=== PATIENT | female | born 1955 | race Caucasian/White ===

== ENCOUNTER → 2023-02-07 14:48 | Outpatient (BNVA) | payer MEDICARE, BC, SELFPAY | PROVIDERS: PCP Nurse Practitioner Primary Care; Visit Provider Urology | DX: N20.0 Calculus of kidney (principal); N95.2 Postmenopausal atrophic vaginitis; R31.9 Hematuria, unspecified; Z87.440 Personal history of urinary (tract) infections | CPT/HCPCS: 51798; 99202 ==

== ENCOUNTER → 2023-03-29 11:19 | Outpatient (BNVA) | payer MEDICARE, SELFPAY | PROVIDERS: PCP Nurse Practitioner Primary Care; Visit Provider Urology | DX: R31.9 Hematuria, unspecified (principal); N95.2 Postmenopausal atrophic vaginitis; N20.0 Calculus of kidney; Z80.52 Family history of malignant neoplasm of bladder; Z87.440 Personal history of urinary (tract) infections | CPT/HCPCS: 52000; 99212 ==

== ENCOUNTER 2023-05-28 11:35 | Outpatient (AMB) | payer MEDICARE, SELFPAY ==
--- NOTE | 2023-05-28 11:35 | A.OFFVIS_ITS ---
Intake Intake Visit Reasons: Recurrent UTI's/Stones- follow up Intake Note: * This is a telephone visit to follow-up on Recurrent UTI's & Stones. * Meds- None * Allergies to Antibiotic- Cipro, Clindamycin, Levofloxacin & Sulfa * Blood Thinner- None Traffic Control Flagger Required: No Accompanied by: Self / Same As Patient Allergies cephalexin [From Keflex] Allergy (Mild, Verified 05/28/23 11:35) Unknown ciprofloxacin [From Cipro] Allergy (Mild, Verified 05/28/23 11:35) Unknown clindamycin Allergy (Mild, Verified 05/28/23 11:35) C-DIFF codeine Allergy (Mild, Verified 05/28/23 11:35) Unknown levofloxacin [From Levaquin] Allergy (Mild, Verified 05/28/23 11:35) Unknown morphine Allergy (Mild, Verified 05/28/23 11:35) Unknown moxifloxacin [From Avelox] Allergy (Mild, Verified 05/28/23 11:35) Unknown nitrofurantoin [From Macrobid] Allergy (Mild, Verified 05/28/23 11:35) Unknown phenazopyridine [From Pyridium] Allergy (Mild, Verified 05/28/23 11:35) Unknown Sulfa (Sulfonamide Antibiotics) Allergy (Mild, Verified 05/28/23 11:35) RASH Reglan Allergy (Mild, Uncoded 05/28/23 11:35) Unknown HPI HPI Comments History of Present Illness Details Leda is a 67-year-old female who presents for tele-health follow-up for renal calculi. 05/28/23-- FU left kidney stone The patient states that she was doing well. The patient wants to get the procedure done to break the left kidney stone. -------LV--03/29/23--Leda is a 67-year-old female who presents to the office for cystoscopy procedure and discussion of 24-hour urine collection test results. The patient presents to the office for cystoscopy procedure. The patient states she has history of neurocardiogenic syncope and has been recommended to consume high sodium diet. Previously treated by Urologist for frequent UTI's- ---used local estrogen; theray of antibiotics prohylaxis post intercourse dis continued because she is allergic to most of them. ---States stopped taking D-mannose due to GI intolerance. Consumes cranberry juice. States smoked briefly in her 20s. Father and sister had history of bladder cancer. ---------OV--02/07/23--Leda is a 67-year-old female who presents to the clinic as new patient evaluation for microscopic hematuria. Went to ED on 01/09/2023 with complaints of hematuria, cloudy urine, and right side flank pain The patient underwent US abdomen at [facility]. states that she was told she likely passed a renal stone. Denies prior history of renal calculi. Has a history of recurrent UTIs. US abdomen?01/12/2023-- Left kidney: 5 mm left lower pole stone and 4 mm left mid pole stone. Right kidney: WNL. Cystoscopy findings: Bladder was within normal limits. No suspicious bladder lesion found. Discussed 24 hour urine results: Total volume 1.23 L, Calcium 224 mg; Oxalate 24 mg, Sodium 158, Citrate 619 mg. Instructed on importance of fluid intake, Low oxalate diet, low sodium diet. I have discussed treatment with Left ESWL, discussed risks including but not limited to, blood in the urine, bruising to the skin, bleeding, possible need for another procedure if a stone fragment obstructs the ureter while passing, possible need to repeat procedure if stone is not completely fragmented. Plan: Left renal calculi. Pt wants to wait on ESWL at this time. Diet sheet for renal calculi prevention was provided to the patient. Discussed to consume adequate amount of water. Discussed Low oxalate diet---green leafy vegetable, nuts, and tea in moderation as they are rich in oxalate. Fosfomycin one dose was ordered. Tele-health follow-up after 2 months 05/28/23--Plan: Discussed left ESWL. Discussed risks to include but not limited to, blood in the urine, bruising to the skin, kidney hematoma, possible need for another procedure if a stone fragment obstructs the ureter while passing, possible need to repeat procedure if stone is not completely fragmented. Repeat imaging to reevaluate the kidneys. US renal Limited was ordered. 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 GERD (gastroesophageal reflux disease) Hallux valgus Hepatic steatosis Mild persistent asthma in adult without complication Multinodular goiter (nontoxic) Nontraumatic tear of right rotator cuff Osteoporosis of lumbar spine Pre-diabetes Renal calculus, right Right thyroid nodule Vulvar atrophy Review of Systems Const All systems reviewed & are unremarkable except as noted in HPI and below Reports no additional complaints Eyes Reports no additional complaints ENT Reports no additional complaints Card Denies dyspnea Resp Denies cough and Denies dyspnea GI Reports no additional complaints Reports no additional complaints Musc Reports no additional complaints Skin/Breast Denies rash and Denies unusual bruising Neuro Reports no additional complaints Psych Reports no additional complaints Endo Reports no additional complaints Jean-Pierre/Lymph Reports no additional complaints Aller/Immun Reports no additional complaints Assessment & Plan Assessment & Plan (1) Calculus of kidney: Code(s): N20.0 - Calculus of kidney Plan Discussed left ESWL. Repeat imaging to reevaluate the kidneys. US renal Limited was ordered. Orders: Orders US renal BI 05/28/23 N20.0 - Calculus of kidney Patient Instructions: The patient had an opportunity to ask questions regarding treatment plan. All questions were answered. Imaging results were discussed and reviewed in detail. No major barriers to understanding were identified. The patient expressed understanding and agreement with the above treatment plan. The patient is aware they should contact our office by phone for worsening of their current condition or the appearance of new symptoms. Compliance is encouraged with any medications and followup testing that is ordered. It is a privilege to be allowed the opportunity to participate in the urologic care of your patient. If you have any questions or concerns regarding treatment for the above conditions please do not hesitate to contact me. The office telephone contact is [phone]. This note is constructed in part using voice recognition software. While every effort has been made to ensure accuracy creative developer errors may have been included. Yours sincerely, Evens Reeves MD Telehealth Telehealth Location of provider rendering services: practice address Location of patient: address on file Patient Identification confirmed using: Name, : Yes Telehealth method: voice only Patient verbally consented to treatment: Yes Patient verbally consented to billing insurance company: Yes Patient informed of any privacy concerns related to visit: Yes Minutes spent on Phone/Video with Pt.: 15 Coding Level of Care Code Tele New Pt Level 3 (90964) Diagnoses Calculus of kidney N20.0
== END 2023-05-28 12:04 | disposition home or self-care (01) ==
LOC: HO.HUSH 11:35
PROVIDERS: PCP Nurse Practitioner Primary Care; Visit Provider Urology
DX: N20.0 Calculus of kidney (principal)
CPT/HCPCS: 99442

== ENCOUNTER → 2023-05-28 11:35 | Outpatient (BNVA) | payer MEDICARE, SELFPAY | PROVIDERS: PCP Nurse Practitioner Primary Care; Visit Provider Urology ==

== ENCOUNTER 2023-08-01 09:42 | Outpatient (REF) | payer MEDICARE, SELFPAY ==
--- NOTE | ~2023-08-01 | US_ITS ---
EXAMINATION: US RETROPERITONEAL LIMITED (RENAL ONLY) CLINICAL INFORMATION: Calculus of kidney. COMPARISON: None available. TECHNIQUE: Real-time imaging of the kidneys. FINDINGS: RIGHT KIDNEY: 10.2 x 3.7 x 5.0 cm (SAG x AP x TRV). The kidney is normal in size, contour, and echogenicity. Renal cortical thickness is normal. No calculi or focal parenchymal lesions. No hydronephrosis. LEFT KIDNEY: 11.7 x 4.1 x 5.1 cm (SAG x AP x TRV). The kidney is normal in size, contour, and echogenicity. Renal cortical thickness is normal. Two echogenic foci are present at the lower pole of the left kidney measuring 3 and 4 mm in size consistent with nonobstructing calculi. No focal parenchymal lesions or hydronephrosis. US/US renal BI IMPRESSION: Nonobstructing left lower pole renal calculi.
== END 2023-08-01 09:43 | disposition home or self-care (01) ==
LOC: HO.US 09:42
PROVIDERS: PCP Nurse Practitioner Primary Care; Visit Provider Urology
DX: N20.0 Calculus of kidney (principal)
CPT/HCPCS: 76775

== ENCOUNTER 2023-08-22 07:23 | Day surgery (SDC) | payer MEDICARE, SELFPAY ==
[2023-08-22] VITALS (7 sets, daily range): BP systolic 137–161; BP diastolic 74–93; PULSE 74–86; RESP 16–20; TEMP 36.1–36.8; O2SAT 98–99; BMI 23.2
[2023-08-22] MEDS: Lactated Ringers 500 ML 999 ML IV (08:50)
--- NOTE | 2023-08-22 09:30 | HO.ANESPROP2 ---
[facility] Active Problems Active Problems: All Active Problems (Updated 08/22/23 @ 08:18 by Monika Chauhan RN) Atrophic vaginitis (Acute) Family history of bladder cancer (Acute) Left nephrolithiasis (Acute) Calculus of kidney (Acute) History of recurrent UTI (urinary tract infection) (Acute) Vaginal atrophy (Acute) Hematuria (Acute) Past Medical History Medical History (Updated 08/22/23 @ 08:18 by Monika Chauhan RN) Neurocardiogenic syncope Heart murmur Hallux valgus Pre-diabetes Hepatic steatosis Nontraumatic tear of right rotator cuff Dense breast Vulvar atrophy Right thyroid nodule Osteoporosis of lumbar spine Allergic rhinitis GERD (gastroesophageal reflux disease) Multinodular goiter (nontoxic) Mild persistent asthma in adult without complication Arthritis of left sacroiliac joint Renal calculus, right Family History Family history of problems with anesthesia: No Surgical History Surgical History (Updated 08/22/23 @ 08:11 by Monika Chauhan RN) Hx of bilateral cataract extraction Hx of bilateral cataract extraction History of tonsillectomy History of partial thyroidectomy History of arthroplasty of right shoulder History of endoscopic retrograde cholangiopancreatography History of cholecystectomy History of Problems with Anesthesia: No Social History Social History Patient Tobacco Use Status: Former Tobacco user Use of substances other than those prescribed or required for medical reasons: No Are you DNR?: No Advance Directives: No Advance Directives Information Provided: Yes Meds Allergies Allergy/AdvReac Type Severity Reaction Status Date / Time cephalexin [From Keflex] Allergy Mild Rash Verified 08/22/23 08:09 ciprofloxacin [From Cipro] Allergy Mild Rash Verified 08/22/23 08:09 clindamycin Allergy Mild C-DIFF Verified 05/28/23 11:35 codeine Allergy Mild Rash Verified 08/22/23 08:09 levofloxacin [From Levaquin] Allergy Mild Rash Verified 08/22/23 08:09 morphine Allergy Mild Rash Verified 08/22/23 08:09 moxifloxacin [From Avelox] Allergy Mild Rash Verified 08/22/23 08:09 nitrofurantoin Allergy Mild Rash Verified 08/22/23 08:09 [From Macrobid] phenazopyridine Allergy Mild Rash Verified 08/22/23 08:09 [From Pyridium] Sulfa (Sulfonamide Allergy Mild RASH Verified 05/28/23 11:35 Antibiotics) Reglan Allergy Mild Unknown Uncoded 08/22/23 08:09 Home Medications Medication Instructions Recorded Confirmed Last Taken Type Bifidobacterium infantis 4 mg 4 mg PO DAILY 01/16/23 08/22/23 Unknown History capsule (Align) albuterol sulfate 90 mcg/actuation 2 puff inhalation Q4-6H PRN sob 01/16/23 08/22/23 Unknown History aerosol inhaler cholecalciferol (vitamin D3) 75 75 mcg PO DAILY 01/16/23 08/22/23 Unknown History mcg (3,000 unit) tablet dexlansoprazole 60 mg 60 mg PO DAILY 01/16/23 08/22/23 Unknown History capsule,biphase delayed release (Dexilant) diclofenac sodium 1 % topical gel 4 g topical QID 01/16/23 08/22/23 Unknown History (Voltaren Arthritis Pain) estradiol 4 mcg vaginal insert 0.1 mcg vaginal .COMPLEX 01/16/23 08/22/23 Unknown History famotidine 20 mg tablet (Pepcid) 20 mg PO DAILY 01/16/23 08/22/23 Unknown History fluticasone propionate 110 1 puff inhalation BID 01/16/23 08/22/23 Unknown History mcg/actuation HFA aerosol inhaler (Flovent HFA) levalbuterol tartrate 45 1 puff inhalation Q4H PRN wheezing 08/22/23 08/22/23 Unknown History mcg/actuation aerosol inhaler montelukast 10 mg tablet 10 mg PO BEDTIME 08/22/23 08/22/23 Unknown History Exam Exam Date and Time: August 22, 2023 0930 Height,Weight and Vital Signs: Height 5 ft 9 in Weight 71.214 kg Last Vital Signs Temp 98.3 F 08/22/23 08:49 Pulse 86 08/22/23 08:49 Resp 16 08/22/23 08:49 BP 137/74 08/22/23 08:49 Pulse Ox 98 08/22/23 08:49 O2 Del Method Room Air 08/22/23 08:49 Airway Mallampati Class: II TM Dist: >3cm Neck ROM: Full Assessment and Plan Assessment Anesthesia Assessment: Anesthesia Plan Discussed and Chart Reviewed Final Anesthetic Review Family History of Problems with Anesthesia: No History of Problems with Anesthesia: No NPO: Yes ASA Class: II Final Preanesthetic Review: No Changes in Pt Med Stat, Meds/Allgs Chart Reviewed, Consent Obtained/Reviewed and Anes Risks/Benef Reviewed Patient Risk: Low Procedure Risk: Low Anesthetic Plan Anesthetic Plan: GA Disposition: Standard PACU
--- NOTE | 2023-08-22 11:02 | P.OP_ITS ---
Operative Note Operative Note Date of Service: 08/22/23 Narrative: PreOperative Diagnosis:? ? Left Renal calculi Post Operative Diagnosis:?Left Renal calculi Procedure:?Left? ESWL Surgeon:?Dr Evens Reeves Anesthesia:? General Indications for procedure: The patient understands there is a risk of bruising or hematoma to the kidney, infection, and stone migration following the procedure and subsequent intervention may be required.? pre procedure - Imaging KUB was reviewed radioopaque calculi was not easily identified in the left kidney. Radiology plant utilities engineer pending. Ultrasound evaulation was done in the procedure room prior to anesthesia and visualized renal calculi left kidney lower pole 3 and 4 mm stones. Procedure: Informed consent was verified the patient was the patient was placed in a supine position on procedure table.? Anesthesia was performed per protocol. Safety pause time-out was performed. Imaging was displayed in the room and laterality confirmed. ESWL was performed.?The stone was visualized on ultrasound.? Shockwave lithotripsy was performed, the first 300 shocks at 60 hertz.? A pause for 2 minutes.? A total of 2500 shocks to a maximum of power of 18 with a maximum rate of 120 hertz.? Some fragmentation of the stones were appreciated. The patient tolerated the procedure well and was transferred to the recovery area upon completion. Complications: None
== END 2023-08-22 12:35 | disposition home or self-care (01) ==
PROVIDERS: PCP Nurse Practitioner Primary Care; Visit Provider Urology
PROC: (CPT 50590; principal; 2023-08-22 09:30)
DX: N20.1 Calculus of ureter (principal); E11.9 Type 2 diabetes mellitus without complications; K21.9 Gastro-esophageal reflux disease without esophagitis; Z87.442 Personal history of urinary calculi; Z79.899 Other long term (current) drug therapy
CPT/HCPCS: 50590; 74018; J0131; J0290; J1100; J2371; J2405

== ENCOUNTER → 2023-08-22 07:23 | Outpatient (BNV) | payer MEDICARE, SELFPAY | PROVIDERS: PCP Nurse Practitioner Primary Care; Visit Provider Urology | DX: N20.0 Calculus of kidney (principal) | CPT/HCPCS: 50590 ==

== ENCOUNTER 2023-08-27 10:49 | Outpatient (REF) | payer MEDICARE, SELFPAY | END 2023-08-27 10:50 | disposition home or self-care (01) | LOC: HO.LAB 10:49 | PROVIDERS: Visit Provider Urology | DX: Z87.440 Personal history of urinary (tract) infections (principal) | CPT/HCPCS: 81001 ==

== ENCOUNTER 2023-09-17 08:16 | Outpatient (AMB) | payer MEDICARE, SELFPAY ==
--- NOTE | 2023-09-17 08:20 | A.OFFVIS_ITS ---
Intake Intake Visit Reasons: 4 wk follow up Intake Note: Patient presents today for a follow-up. Meds- None Allergies to Antibiotic- Cephalexin, ciprofloxacin, clindamycin, levofloxacin, moxifloxacin, nitrofurantoin, Sulfa. Blood Thinner- None Briar Shop Supervisor Required: No Accompanied by: Self / Same As Patient Allergies cephalexin [From Keflex] Allergy (Mild, Verified 09/17/23 08:24) Rash ciprofloxacin [From Cipro] Allergy (Mild, Verified 09/17/23 08:24) Rash clindamycin Allergy (Mild, Verified 09/17/23 08:24) C-DIFF codeine Allergy (Mild, Verified 09/17/23 08:24) Rash levofloxacin [From Levaquin] Allergy (Mild, Verified 09/17/23 08:24) Rash morphine Allergy (Mild, Verified 09/17/23 08:24) Rash moxifloxacin [From Avelox] Allergy (Mild, Verified 09/17/23 08:24) Rash nitrofurantoin [From Macrobid] Allergy (Mild, Verified 09/17/23 08:24) Rash phenazopyridine [From Pyridium] Allergy (Mild, Verified 09/17/23 08:24) Rash Sulfa (Sulfonamide Antibiotics) Allergy (Mild, Verified 09/17/23 08:24) RASH Reglan Allergy (Mild, Uncoded 08/22/23 08:09) Unknown HPI HPI Comments History of Present Illness Details Leda is a 68-year-old female who presents today to the office for a follow-up. 09/17/2023? She is followed for history of frequent urinary tract infections, and nephrolithiasis. Patient is a status post left ESWL done on 08/22/2023 for left renal stone in the l ower pole. Patient states that post procedure she did see some blood clots in the urine and did not notice any stone fragments. Patient states that she had kidney pain in first couple of days which resolved. She states that over the weekend she did some moving furniture and notes that the kidney pain recurred. I discussed with the patient that the left kidney stone was seen on ultrasound but not seen well KUB imaging so we will monitor with ultrasound imaging on FU. I reviewed the prior 24-hour urine collection test results noted to be urine volume was low at 1.23 L, urine calcium was elevated at 224, and urine sodium was elevated at 158. Discussed again importance of adequate fluid hydration and low sodium diet. The patient states she had a condition neurocardiogenic syncope and needs to consume a certain amount of salt in her diet. X-ray KUB results from 08/22/2023 revealed no evidence of renal calculi. In regards to her symptoms recurrent urinary tract infections, the patient is currently not sexually active which she states is the time when she would get most of her urinary tract infections. She states that nothing ever worked for her including vaginal estrogen, cranberry and D mannose. 09/17/2023: Evaluation today?UA? Leukocy cali: negative; blood: negative. 09/17/2023: Plan: Monitor Kidneys. Orde red Renal US and 24-hour urine collection test in 6 months. Follow-up post. [facility] Medical History Neurocardiogenic syncope Heart murmur Hallux valgus Pre-diabetes Hepatic steatosis Nontraumatic tear of right rotator cuff Dense breast Vulvar atrophy Right thyroid nodule Osteoporosis of lumbar spine Allergic rhinitis GERD (gastroesophageal reflux disease) Multinodular goiter (nontoxic) Mild persistent asthma in adult without complication Arthritis of left sacroiliac joint Renal calculus, right Surgical History Hx of bilateral cataract extraction Hx of bilateral cataract extraction History of tonsillectomy History of partial thyroidectomy History of arthroplasty of right shoulder History of endoscopic retrograde cholangiopancreatography History of cholecystectomy Family History Father No problems noted. Mother No problems noted. Social History Alcohol intake: current Alcohol intake frequency: does not drink Patient Tobacco Use Status: Former Tobacco user Review of Systems Const All systems reviewed & are unremarkable except as noted in HPI and below Reports no additional complaints Eyes Reports no additional complaints ENT Reports no additional complaints Card Denies dyspnea Resp Denies cough and Denies dyspnea GI Reports no additional complaints Reports no additional complaints Musc Reports no additional complaints Skin/Breast Denies rash and Denies unusual bruising Neuro Reports no additional complaints Psych Reports no additional complaints Endo Reports no additional complaints Jean-Pierre/Lymph Reports no additional complaints Aller/Immun Reports no additional complaints Results AMB Urinalysis, Automated UA Leukoctes 0 Jonel/uL Last Edit by SAGAR Delvalle on 09/17/23 09:48 UA Nitrite Negative Last Edit by SAGAR Delvalle on 09/17/23 09:48 UA Urobilinogen 0.2 mg/dL Last Edit by Oj Alvarado Parul on 09/17/23 09:4 8 UA Protein 0 mg/dL Last Edit by SAGAR Delvalle on 09/17/23 09:48 UA pH 6.0 Last Edit by Oj Alvarado Parul on 09/17/23 09:48 UA Blood 0 Gary/uL Last Edit by Oj Alvarado Parul on 09/17/23 09:48 UA Specific [place] 1.015 Last Edit by SAGAR Delvalle on 09/17/23 09: 48 UA Ketone Negative Last Edit by SAGAR Delvalle on 09/17/23 09:48 UA Bilirubin 0 mg/dL Last Edit by Oj Alvarado Parul on 09/17/23 09:48 UA Glucose 0 mg/dL Last Edit by Oj Alvarado Parul on 09/17/23 09:48 Results Reviewed Results Reviewed: Laboratory Last Values Urine pH (Auto) 6.0 09/17/23 09:43 Specific [place] (Auto) 1.015 09/17/23 09:43 Urine Protein (Auto) 0 mg/dL 09/17/23 09:43 Glucose (UA)(Auto) 0 mg/dL 09/17/23 09:43 Urine Ketones (Auto) Negative 09/17/23 09:43 Urine Blood (Auto) 0 Gary/uL 09/17/23 09:43 Urine Nitrite (Auto) Negative 09/17/23 09:43 Urine Bilirubin (Auto) 0 mg/dL 09/17/23 09:43 Urine Urobilinogen (Auto) 0.2 mg/dL 09/17/23 09:43 Leukocyte Esterase (Auto) 0 Jonel/uL 09/17/23 09:43 Date of Service: 08/22/23 EXAMINATION: XR ABDOMEN KUB CLINICAL INDICATION: Pre ESWL left lower pole kidney. COMPARISON: Renal ultrasound 08/01/2023. FINDINGS: The bowel gas pattern is normal with no evidence of ileus or obstruction. The small 3 and 4 mm calculi that were seen on the recent ultrasound exam are not visible on the plain film. No unusual soft tissue calcifications are noted. The bones are unremarkable. Surgical clips are noted in the gallbladder fossa. A few phleboliths are noted in the pelvis. IMPRESSION: No evidence of renal calculi. Assessment & Plan Assessment & Plan (1) Left nephrolithiasis: Code(s): N20.0 - Calculus of kidney (2) Family history of bladder cancer: Code(s): Z80.52 - Family history of malignant neoplasm of bladder (3) Hematuria: Code(s): R31.9 - Hematuria, unspecified (4) History of recurrent UTI (urinary tract infection): Code(s): Z87.440 - Personal history of urinary (tract) infections (5) Atrophic vaginitis: Code(s): N95.2 - Postmenopausal atrophic vaginitis Plan Ordered Renal US and 24-hour urine collection test in 6 months. Follow-up post. Orders: Orders AMB Urinalysis Automated Today Z13.9 - Encounter for screening, unspecified Patient Instructions: The patient had an opportunity to ask questions regarding treatment plan. All questions were answered. Imaging, Laboratory studies and physical exam results were discussed and reviewed in detail. No major barriers to understanding were identified. The patient expressed understanding and agreement with the above treatment plan. The patient is aware they should contact our office by phone for worsening of their current condition or the appearance of new symptoms. Compliance is encouraged with any medications and followup testing that is ordered. It is a privilege to be allowed the opportunity to participate in the urologic care of your patient. If you have any questions or concerns regarding treatment for the above conditions please do not hesitate to contact me. The office telephone contact is [phone]. This note is constructed in part using voice recognition software. While every effort has been made to ensure accuracy director maternal child errors may have been included. Yours sincerely, Evens Reeves MD Coding Level of Care Code Est Pt Level 3 (40481) Diagnoses Left nephrolithiasis N20.0 Family history of bladder cancer Z80.52 Hematuria R31.9 History of recurrent UTI (urinary tract infection) Z87.440 Atrophic vaginitis N95.2
== END 2023-09-17 09:02 | disposition home or self-care (01) ==
PROVIDERS: PCP Nurse Practitioner Primary Care; Visit Provider Urology
DX: N20.0 Calculus of kidney (principal); Z80.52 Family history of malignant neoplasm of bladder; R31.9 Hematuria, unspecified; Z87.440 Personal history of urinary (tract) infections; N95.2 Postmenopausal atrophic vaginitis; Z13.9 Encounter for screening, unspecified
CPT/HCPCS: 99024

== ENCOUNTER → 2023-09-17 08:16 | Outpatient (BNVA) | payer MEDICARE, SELFPAY | PROVIDERS: PCP Nurse Practitioner Primary Care; Visit Provider Urology | DX: N20.0 Calculus of kidney (principal); R31.9 Hematuria, unspecified; N95.2 Postmenopausal atrophic vaginitis; Z80.52 Family history of malignant neoplasm of bladder; Z87.440 Personal history of urinary (tract) infections | CPT/HCPCS: 81003; 99212 ==

== ENCOUNTER 2024-01-24 09:43 | Outpatient (REF) | payer MEDICARE, SELFPAY ==
--- NOTE | ~2024-01-24 | US_ITS ---
EXAMINATION: US RETROPERITONEAL LIMITED (RENAL ONLY) CLINICAL INFORMATION: Calculus of kidney. COMPARISON: X-ray abdomen KUB 08/22/2023. Renal ultrasound 08/01/2023. TECHNIQUE: Real-time imaging of the kidneys. FINDINGS: RIGHT KIDNEY: 10.3 x 3.5 x 5.4 cm (SAG x AP x TRV). The kidney is normal in size, contour, and echogenicity. Renal cortical thickness is normal. No calculi or focal parenchymal lesions. No hydronephrosis. LEFT KIDNEY: 10.9 x 4.4 x 4.3 cm (SAG x AP x TRV). The kidney is normal in size, contour, and echogenicity. Renal cortical thickness is normal. There is a lower pole 7 mm echogenic focus with twinkle artifact consistent with a nonobstructing stone. On the prior ultrasound exam, 3 and 4 mm stones were noted at the lower pole. No focal parenchymal lesions or hydronephrosis. US/US renal BI IMPRESSION: Nonobstructing 7 mm left lower pole renal calculus.
== END 2024-01-24 09:44 | disposition home or self-care (01) ==
LOC: HO.US 09:43
PROVIDERS: PCP Nurse Practitioner Primary Care; Visit Provider Urology
DX: N20.0 Calculus of kidney (principal)
CPT/HCPCS: 76775

== ENCOUNTER 2024-04-21 11:16 | Outpatient (AMB) | payer MEDICARE, SELFPAY ==
--- NOTE | 2024-04-21 11:18 | MHC.OFFVIS ---
Intake Visit Reasons: 7m/US/litholink Allergies cephalexin [From Keflex] Allergy (Mild, Verified 09/17/23 08:24) Rash ciprofloxacin [From Cipro] Allergy (Mild, Verified 09/17/23 08:24) Rash clindamycin Allergy (Mild, Verified 09/17/23 08:24) C-DIFF codeine Allergy (Mild, Verified 09/17/23 08:24) Rash levofloxacin [From Levaquin] Allergy (Mild, Verified 09/17/23 08:24) Rash morphine Allergy (Mild, Verified 09/17/23 08:24) Rash moxifloxacin [From Avelox] Allergy (Mild, Verified 09/17/23 08:24) Rash nitrofurantoin [From Macrobid] Allergy (Mild, Verified 09/17/23 08:24) Rash phenazopyridine [From Pyridium] Allergy (Mild, Verified 09/17/23 08:24) Rash Sulfa (Sulfonamide Antibiotics) Allergy (Mild, Verified 09/17/23 08:24) RASH Reglan Allergy (Mild, Uncoded 08/22/23 08:09) Unknown HPI Comments Details: 04/21/24--Leda is a 68-year-old female who presents today to the office for a follow-up for nephrolithiasis. Previous 24 hour urine collection 02/23/2023, low urine volume slightly elevated urine calcium to 24 mg and slightly elevated urine sodium. She had left ESWL performed on 08/21/2023. She is here in follow-up to discuss renal ultrasound results. I discussed renal ultrasound 01/24/2024, a 7 mm left kidney lower pole stone is visualized. Prior to left ESWL, renal ultrasound 08/01/2023 noted a 3 and 4 mm stone in the left kidney. I question accuracy of reported size of stone in the left kidney on renal US 01/24/24. The patient states she is asymptomatic denies renal colic or gross hematuria. Plan discussed follow-up CT stone protocol in 1 year. Patient to call earlier for urinary symptoms. Again recommended increasing fluid intake up to 2 L and low-sodium diet. Review of chart: 09/17/2023? She is followed for history of frequent urinary tract infections, and nephrolithiasis. Patient is a status post left ESWL done on 08/22/2023 for left renal stone in the lower pole. Patient states that post procedure she did see some blood clots in the urine and did not notice any stone fragments. Patient states that she had kidney pain in first couple of days which resolved. She states that over the weekend she did some moving furniture and notes that the kidney pain recurred. I discussed with the patient that the left kidney stone was seen on ultrasound but not seen well KUB imaging so we will monitor with ultrasound imaging on FU. I reviewed the prior 24-hour urine collection test results noted to be urine volume was low at 1.23 L, urine calcium was elevated at 224, and urine sodium was elevated at 158. Discussed again importance of adequate fluid hydration and low sodium diet. The patient states she had a condition neurocardiogenic syncope and needs to consume a certain amount of salt in her diet. X-ray KUB results from 08/22/2023 revealed no evidence of renal calculi. In regards to her symptoms recurrent urinary tract infections, the patient is currently not sexually active which she states is the time when she would get most of her urinary tract infections. She states that nothing ever worked for her including vaginal estrogen, cranberry and D mannose. Evaluation today?UA? Leukocytes: negative; blood: negative. Monitor Kidneys. Ordered Renal US and 24-hour urine collection test in 6 months. [facility] Medical History Neurocardiogenic syncope Heart murmur Hallux valgus Pre-diabetes Hepatic steatosis Nontraumatic tear of right rotator cuff Dense breast Vulvar atrophy Right thyroid nodule Osteoporosis of lumbar spine Allergic rhinitis GERD (gastroesophageal reflux disease) Multinodular goiter (nontoxic) Mild persistent asthma in adult without complication Arthritis of left sacroiliac joint Renal calculus, right Surgical History Hx of bilateral cataract extraction Hx of bilateral cataract extraction History of tonsillectomy History of partial thyroidectomy History of arthroplasty of right shoulder History of endoscopic retrograde cholangiopancreatography History of cholecystectomy Family History Father No problems noted. Mother No problems noted. Social History Alcohol intake: current Alcohol intake frequency: does not drink Patient Tobacco Use Status: Former Tobacco user Review of Systems Const All systems reviewed & are unremarkable except as noted in HPI and below Reports no additional complaints Eyes Reports no additional complaints ENT Reports no additional complaints Card Reports no additional complaints Resp Reports no additional complaints GI Reports no additional complaints Reports as per HPI Musc Reports no additional complaints Skin/Breast Reports system reviewed and no additional complaints, except as documented Neuro Reports no additional complaints Psych Reports no additional complaints Endo Reports no additional complaints Jean-Pierre/Lymph Reports no additional complaints Aller/Immun Reports no additional complaints Results AMB Urinalysis, Automated UA Leukoctes 0 Jonel/uL Last Edit by SAGAR Delvalle on 04/21/24 11:33 UA Nitrite Negative Last Edit by Oj Alvarado Parul on 04/21/24 11:33 UA Urobilinogen 0.2 mg/dL Last Edit by Oj Alvarado Parul on 04/21/24 11:33 UA Protein 15 mg/dL Last Edit by Oj Alvarado Parul on 04/21/24 11:33 UA pH 6.0 Last Edit by Oj Alvarado [facility] on 04/21/24 11:33 UA Blood 10 Gary/uL Last Edit by SAGAR Delvalle on 04/21/24 11:33 UA Specific Bucklin 1.010 Last Edit by SAGAR Delvalle on 04/21/24 11:33 UA Ketone Negative Last Edit by Oj Alvarado Parul on 04/21/24 11:33 UA Bilirubin 0 mg/dL Last Edit by Oj Alvarado Parul on 04/21/24 11:33 UA Glucose 0 mg/dL Last Edit by Oj Alvarado [facility] on 04/21/24 11:33 Results Reviewed Results Reviewed: Date of Service: 01/24/24 EXAMINATION: US RETROPERITONEAL LIMITED (RENAL ONLY) CLINICAL INFORMATION: Calculus of kidney. COMPARISON: X-ray abdomen KUB 08/22/2023. Renal ultrasound 08/01/2023. TECHNIQUE: Real-time imaging of the kidneys. FINDINGS: RIGHT KIDNEY: 10.3 x 3.5 x 5.4 cm (SAG x AP x TRV). The kidney is normal in size, contour, and echogenicity. Renal cortical thickness is normal. No calculi or focal parenchymal lesions. No hydronephrosis. LEFT KIDNEY: 10.9 x 4.4 x 4.3 cm (SAG x AP x TRV). The kidney is normal in size, contour, and echogenicity. Renal cortical thickness is normal. There is a lower pole 7 mm echogenic focus with twinkle artifact consistent with a nonobstructing stone. On the prior ultrasound exam, 3 and 4 mm stones were noted at the lower pole. No focal parenchymal lesions or hydronephrosis. IMPRESSION: Nonobstructing 7 mm left lower pole renal calculus. Date of Service: 08/22/23 EXAMINATION: XR ABDOMEN KUB CLINICAL INDICATION: Pre ESWL left lower pole kidney. COMPARISON: Renal ultrasound 08/01/2023. FINDINGS: The bowel gas pattern is normal with no evidence of ileus or obstruction. The small 3 and 4 mm calculi that were seen on the recent ultrasound exam are not visible on the plain film. No unusual soft tissue calcifications are noted. The bones are unremarkable. Surgical clips are noted in the gallbladder fossa. A few phleboliths are noted in the pelvis. IMPRESSION: No evidence of renal calculi. Date of Service: 08/01/23 EXAMINATION: US RETROPERITONEAL LIMITED (RENAL ONLY) CLINICAL INFORMATION: Calculus of kidney. COMPARISON: None available. TECHNIQUE: Real-time imaging of the kidneys. FINDINGS: RIGHT KIDNEY: 10.2 x 3.7 x 5.0 cm (SAG x AP x TRV). The kidney is normal in size, contour, and echogenicity. Renal cortical thickness is normal. No calculi or focal parenchymal lesions. No hydronephrosis. LEFT KIDNEY: 11.7 x 4.1 x 5.1 cm (SAG x AP x TRV). The kidney is normal in size, contour, and echogenicity. Renal cortical thickness is normal. Two echogenic foci are present at the lower pole of the left kidney measuring 3 and 4 mm in size consistent with nonobstructing calculi. No focal parenchymal lesions or hydronephrosis. IMPRESSION: Nonobstructing left lower pole renal calculi. Assessment & Plan Assessment & Plan (1) Left nephrolithiasis: Code(s): N20.0 - Calculus of kidney Category: Medical (2) Family history of bladder cancer: Code(s): Z80.52 - Family history of malignant neoplasm of bladder Category: Medical (3) Hematuria: Code(s): R31.9 - Hematuria, unspecified Category: Medical (4) History of recurrent UTI (urinary tract infection): Code(s): Z87.440 - Personal history of urinary (tract) infections Category: Medical (5) Atrophic vaginitis: Code(s): N95.2 - Postmenopausal atrophic vaginitis Category: Medical Plan Plan discussed follow-up CT stone protocol in 1 year. Patient to call earlier for urinary symptoms. Again recommended increasing fluid intake up to 2 L and low-sodium diet. Orders: Orders AMB Urinalysis Automated Today Z13.9 - Encounter for screening, unspecified CT abdomen pelvis wo IV con 42 Weeks N20.0 - Calculus of kidney Patient Instructions: The patient had an opportunity to ask questions regarding treatment plan. The patient expressed understanding and agreement with the above treatment plan. The patient is aware they should contact our office by phone for worsening of their current condition or the appearance of new symptoms. Compliance is encouraged with any medications and followup testing that is ordered. It is a privilege to be allowed the opportunity to participate in the urologic care of your patient. If you have any questions or concerns regarding treatment for the above conditions please do not hesitate to contact me. The office telephone contact is [phone]. This note is constructed in part using voice recognition software. While every effort has been made to ensure accuracy aerologist errors may have been included. Yours sincerely, Evens Reeves MD Coding Level of Care Code Est Pt Level 3 (28585) Complex EM visit Add On G2211 Diagnoses Left nephrolithiasis N20.0 Family history of bladder cancer Z80.52 Hematuria R31.9 History of recurrent UTI (urinary tract infection) Z87.440 Atrophic vaginitis N95.2
== END 2024-04-21 11:42 | disposition home or self-care (01) ==
PROVIDERS: PCP Nurse Practitioner Primary Care; Visit Provider Urology
DX: N20.0 Calculus of kidney (principal); Z80.52 Family history of malignant neoplasm of bladder; R31.9 Hematuria, unspecified; Z87.440 Personal history of urinary (tract) infections; N95.2 Postmenopausal atrophic vaginitis; Z13.9 Encounter for screening, unspecified
CPT/HCPCS: 99213; G2211

== ENCOUNTER → 2024-04-21 11:16 | Outpatient (BNVA) | payer MEDICARE, SELFPAY | PROVIDERS: PCP Nurse Practitioner Primary Care; Visit Provider Urology | DX: N20.0 Calculus of kidney (principal); R31.9 Hematuria, unspecified; N95.2 Postmenopausal atrophic vaginitis; Z87.440 Personal history of urinary (tract) infections; Z80.52 Family history of malignant neoplasm of bladder | CPT/HCPCS: 81003; 99212 ==

== ENCOUNTER 2024-12-19 13:46 | Outpatient (REF) | payer MEDICARE, SELFPAY ==
--- NOTE | ~2024-12-19 | CT_ITS ---
CLINICAL HISTORY: N20.0 - Calculus of kidney CT abdomen and pelvis without contrast Comparison: None Findings: The lung bases are clear. Unremarkable solid organs. There are no abnormal findings in the gallbladder fossa. No urolithiasis. No bowel obstruction, pneumoperitoneum, or pneumatosis. Pelvic contents unremarkable. Normal appendix. The bones are intact. IMPRESSION: No acute findings. This document has been electronically signed by: Gray White MD on 12/19/2024 19:12:34
--- OUTSIDE RECORDS SUMMARY | 2024-12-19 13:47 | XMS_ITS | Clinical Summary ---
Author Organization [facility] Address [address] [place] [address] Care Team Providers Care Flight Superintendent Name Role Phone Unavailable Primary Care Provider Unavailabl e Allergies Active Allergy Reactions Criticality Noted Date Comments Moxifloxacin Hcl In Nacl Nausea Only 04/14/2015 Ciprofloxacin 09/14/2015 ?rash Clindamycin High 05/27/2015 Developed C. difficile Codeine 04/14/2015 Unknown reaction Levofloxacin In D5w Rash Low 04/14/2015 Nitrofurantoin Rash Low 06/03/2015 Morphine Nausea Only 09/14/2015 Metoclopramide High 04/14/2015 Tardive dyskinesia Sulfa Antibiotics 04/14/2015 Rash on extremities and head Medications Medication Sig Dispensed Refills Start Date End Date Status Probiotic Product (ALIGN) 4 MG CAPS Take 4 mg by mouth daily. 0 Active MULTIPLE VITAMIN PO Take 1 tablet by mouth daily. 0 Active Albuterol Sulfate (PROAIR RESPICLICK) 108 (90 BASE) MCG/ACT AEPB Inhale 2 inhalations into the lungs 4 (four) times a day as needed. 1 each 6 02/14/2016 Active Additional Information Patient taking differently:2 inhalation. InhalationAs needed, instructed to bring, Reported on 12/27/2016 beclomethasone (QVAR) 80 MCG/ACT inhalerIndications :Mild intermittent asthma without complication Inhale 1 puff into the lungs 2 (two) times a day. 3 Inhaler 3 12/05/2016 Active amitriptyline (ELAVIL) 10 MG tablet Take 1 tablet (10 mg total) by mouth every night at bedtime. 90 tablet 2 03/19/2017 Active dexlansoprazole (DEXILANT) 60 MG capsule Take 1 capsule (60 mg total) by mouth 2 (two) times a day before breakfast and dinner. 180 capsule 1 05/03/2017 Active montelukast (SINGULAIR) 10 MG tablet TAKE 1 TABLET DAILY 90 tablet 1 08/01/2017 Active Active Problems Problem Noted Date Diagnosed Date Fracture of left great toe 07/27/2016 Acquired hallux rigidus 07/27/2016 Foot pain, left 07/27/2016 Capsulitis of left foot 07/27/2016 Acute frontal sinusitis 02/14/2016 SOB (shortness of breath) 12/10/2015 Penicillin allergy 09/14/2015 Personal history of allergy to antibiotic agent 09/14/2015 Personal history of allergy to other specified medicinal agents 09/14/2015 Mild persistent extrinsic asthma without complic ation 09/14/2015 Allergic rhinitis due to pollen 09/14/2015 Allergic rhinitis due to house dust mite 015 Multinodular goiter (nontoxic) 09/13/2015 Right thyroid nodule 09/13/2015 Epigastric pain 07/05/2015 Abdominal pain, epigastric 05/27/2015 Routine general medical exam ination at a health care facility 05/27/2015 Esophageal reflux 05/27/2015 Asthma 04/17/2014 Immunizations Name Administration Dates Next Due Influenza TIV (IM) (inactive) 08/19/2015 Varicella 07/20/2014 Family History Medical History Relation Name Comments Allergic rhinitis Father YANG Asthma Father Diabetes Father Hypothyroidism Mother Diabetes Other multiple patern al relatives Breast cancer Paternal Aunt Breast cancer Sister 3 BRCA 1/2 Neg Hx Cancer Neg Hx Colon cancer Neg Hx Endometrial cancer Neg Hx Ovarian cancer Neg Hx Relation Name Status Comments Brother 1 Alive Brother 2 Alive Father Alive 94 Mother Alive 95 Other Paternal Aunt Sister 1 Alive Sister 2 Alive Sister 3 Social History Tobacco Use Types Packs/Day Years Used Date Smoking Tobacco: Former Smokeless Tobacco: Never Comments:quit 40 years ago, was an occasional smoker Alcohol Use Standard Drinks/Week Comments Yes 0 (1 standard drink = 0.6 oz pur e alcohol) very little per pt Sex and Gender Information Value Date Recorded Sex Assigned at Not on file Gender Identity Not on file Sexual Orientation Not on file Last Filed Vital Signs Vital Sign Reading Time Taken Comments Blood Pressure 108/80 03/19/2017 1:21 PM EDT Pulse 82 03/19/2017 1:21 PM EDT Temperature 37 ??C (98.6 ??F) 03/19/2017 1:21 PM EDT Respiratory Rate 17 12/29/2016 12:00 PM EST Oxygen Saturation 98% 12/29/2016 12:17 PM EST Inhaled Oxygen Concentration - - Weight 66.7 kg (147 lb) 03/19/2017 1:21 PM EDT Height 175.3 cm (5' 9 ) 03/19/2017 1:21 PM EDT Body Mass Index 21.71 03/19/2017 1:21 PM EDT Plan of Treatment Health Maintenance Due Date Last Done Comments Hepatitis C Screening 1955 COVID-19 Vaccine (#1) 03/11/1955 Depression Screening 1966 Preventative Health Evaluation 1972 DTap / Tdap / Td (1 - Tdap) 1973 Colon Cancer Screening (Colonoscopy) 1999 Shingrix-Zoster Vaccine (1 o f 2) 09/14/2014 Breast Cancer Screening (Mammogram) 09/06/2018 09/06/2016, 07/02/2015, 06/29/2014 Fall Risk Assessment 2019 Osteoporosis Screening (DEXA Scan) 2019 Pneumococcal Vaccine (1 of 1 - PCV) 2019 Influenza Vaccine (#1) 2024 08/19/2015 RSV Adult > 60+ Yrs or (1 - 1-dose 75+ series) 2029 Hepatitis B Vaccines Aged Out No long er eligible based on patient's age to complete this topic RSV Ped < 20 months Aged Out No longe r eligible based on patient's age to complete this topic Medical Devices Implanted Type Area Junior Qa Analyst Device Identifier Shelf Expiration Date Model / Serial / Lot Cellulose Surgicel 14x2in Absorbable Hemostatic Agent - [id number] - [id number] Implanted:Qty: 1 on 12/29/2016 by Tommie Oglesby MD at [facility] and Med Hemostatic Agent N/A: Neck [employer] 05/18/20211950 / / [id number] Advance Directives For more information, please contact: [phone] Latest Code Status on File Code Status Date Activated Date Inactivated Comments Full Code 06/04/2015 8:58 AM 06/04/2015 3:54 PM This code status was ascertained in the following way: discussion with patient.
--- OUTSIDE RECORDS SUMMARY | 2024-12-19 13:47 | XMS_ITS | Clinical Summary ---
Author Organization [facility] Address [address] [place] [address] Care Team Providers Care Manager Books Name Role Phone Unavailable Primary Care Provider Unavailabl e Surgical History Surgery Date Site/Laterality Comments CHOLECYSTECTOMY PROCEDURE:CHOLECYSTECTOMY ERCP W/ SPHICTEROTOMY PROCEDURE:ERCP W/ SPHICTEROTOMY SECTION PROCEDURE: SECTION SHOULDER SURGERY Right PROCEDURE:SHOULDER SURGERY;COMMENT:rotator cuff repair EYE SURGERY PROCEDURE:EYE SURGERY;COMMENT:bilateral cataract surgery BREAST BIOPSY Bilateral PROCEDURE:BREAST EXCISIONAL BIOPSY;COMMENT:1978, benign CATARACT EXTRACTION W/ INTRAOCULAR LENS IMPLANT PROCEDURE:CATARACT EXTRACTION W/ INTRAOCULAR LENS IMPLANT COLONOSCOPY PROCEDURE:COLONOSCOPY THYROIDECTOMY, PARTIAL 12/29/2016 Bilateral PROCEDURE:THYROIDECTOMY, PARTIAL;COMMENT:Procedure: RIGHT THYROIDECTOMY; Surgeon: Tommie Oglesby MD; Location: [facility] MAIN OPERATING ROOM; Service: General; Laterality: Bilateral; w/ reimplantation of parathyroid gland UPPER GASTROINTESTINAL ENDOSCOPY 06/04/2015 N/A PROCEDURE:UPPER GASTROINTESTINAL ENDOSCOPY;COMMENT:Procedure: UPPER ENDOSCOPY-EGD; Surgeon: Krunal Carvalho MD; Location: [facility] ENDOSCOPY; Service: Gastroenterology; Laterality: N/A; Medical History Medical History Date Comments Clostridium difficile colitis DX :Clostridium difficile colitis DVT (deep venous thrombosis) ([facility]) 1999 DX:DVT (deep venous thrombosis) ([facility]);COMMENT:left calf Asthma DX:Asthma Anemia DX:Anemia;COMMEN T:mild, not on iron supplements Multiple thyroid nodules DX:Mult iple thyroid nodules;COMMENT:being monitored Stomach ulcer DX:Stomach ulcer Osteoporosis DX:Osteoporosis Multiple thyroid nodules DX:Mult iple thyroid nodules Mitral valve prolapse DX:Mitral valve prolapse DVT of leg (deep venous thro mbosis) ([facility]) DX:DVT of leg (deep venous t hrombosis) ([facility]) GERD (gastroesophageal reflux disease) DX:GERD (gastroesophageal reflux disease) Thyroid condition DX:Thyroid con dition PONV (postoperative nausea and vomiting) DX:PONV (postoperative nausea and vomiting) Osteoarthritis DX:Osteoarthriti s Pneumonia DX:Pneumonia Urinary tract infection DX:Urina ry tract infection Hepatitis DX:Hepatitis;COM MENT:had twice, 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, 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 Syncope DX:Syncope;COMME NT:last episode 2 years Neurocardiogenic syncope DX:Neur ocardiogenic syncope;COMMENT:hx of / last episode 2014 Family History Medical History Relation Name Comments Allergic rhinitis Father YANG Asthma Father Diabetes Father Breast cancer Father's Sister Hypothyroidism Mother Diabetes Other multiple patern al relatives Breast cancer Sister 1 BRCA 1/2 Neg Hx Cancer Neg Hx Colon cancer Neg Hx Endometrial cancer Neg Hx Ovarian cancer Neg Hx Relation Name Status Comments Brother 1 Alive Brother 2 Alive Father Alive 94 Father's Sister Mother Alive 95 Other Sister 1 Sister 2 Alive Sister 3 Alive Social History Tobacco Use Types Packs/Day Years Used Date Smoking Tobacco: Former Smokeless Tobacco: Never Alcohol Use Standard Drinks/Week Comments Yes 0 (1 standard drink = 0.6 oz pur e alcohol) Sex and Gender Information Value Date Recorded Sex Assigned at Not on file Gender Identity Not on file Sexual Orientation Not on file Obstetrics History Plan of Treatment Health Maintenance Due Date Last Done Comments Breast Cancer Screening 1954 DTaP,Tdap,and Td Vaccines (1 - Tdap) 1973 Zoster Vaccines (1 of 2) 09/14/2014 07/20/2014 Pneumococcal Vaccine: 65+ Ye ars (1 of 1 - PCV) 2019 COVID-19 Vaccine ( - 2023-2 5 season) 2024 Influenza Vaccine (#1) 2024 08/19/2015 RSV Immunization Patients 60 + Years Old (1 - 1-dose 75+ series) 2029 Varicella Vaccines Aged Out 07/20/2014 No longer eligible based on patient's age to complete this topic HIB Vaccines Aged Out No longer eligi ble based on patient's age to complete this topic HPV Vaccines Aged Out No longer eligi ble based on patient's age to complete this topic Hepatitis A Vaccines Aged Out No long er eligible based on patient's age to complete this topic Hepatitis B Vaccines Aged Out No long er eligible based on patient's age to complete this topic IPV Vaccines Aged Out No longer eligi ble based on patient's age to complete this topic MMR Vaccines Aged Out No longer eligi ble based on patient's age to complete this topic Meningococcal ACWY Vaccine Aged Out N o longer eligible based on patient's age to complete this topic RSV Immunization Patients Un cristina 20 months Aged Out No longer eligible b ased on patient's age to complete this topic
--- OUTSIDE RECORDS SUMMARY | 2024-12-19 13:47 | XMS_ITS | Clinical Summary ---
Author Organization [facility] Address [address] [place] [address] Care Team Providers Care Acid Tender Name Role Phone Joe Bryan MD Primary Care Provider [phone] Allergies Active Allergy Reactions Criticality Noted Date Comments Ciprofloxacin Hcl 01/22/2012 Clindamycin 01/22/2012 Codeine 04/30/2017 Levaquin 04/30/2017 Metoclopramide 04/30/2017 Nitrofurantoin 04/30/2017 Penicillins 01/22/2012 Sulfa Antibiotics 01/22/2012 Medications Omeprazole (PriLOSEC) [address] capsule 0 01/22/2012 Active montelukast (Singulair) 10 MG tablet 0 01/22/2012 Active Estradiol (Vagifem) 10 MCG Tab 0 01/22/2012 Active Ciclesonide (Alvesco) 160 MCG/ACT inhaler 0 01/22/2012 Act mehul Clotrimazole (LOTRIMIN) 1 % vaginal cream 0 01/22/2012 Activ e Fexofenadine HCl (FLAKO) 180 MG tablet 0 01/22/2012 Active Active Problems Problem Noted Date Diagnosed Date Headache 04/30/2017 Acute allergic rhinitis due to pollen 04/30/2017 Asthma 01/22/2012 Chronic sinusitis 01/22/2012 Eustachian tube dysfunction 01/22/2012 Family History Medical History Relation Name Comments Allergies (med/food/envrnmt) Other Allergies : Family History Asthma Other Asthma : Family History Cancer (?Type) Other Cancer : Fami ly History Diabetes Other Diabetes Mellit us : Family History Thyroid Disorder Other Thyroid Dis order : Family History Relation Name Status Comments Other Social History Tobacco Use Types Packs/Day Years Used Date Smoking Tobacco: Never Assessed Comments:Smoking Status:Ciga rette smoker Comments Unknown Sex and Gender Information Value Date Recorded Sex Assigned at Not on file Legal Sex Female 5:04 PM EDT Gender Identity Not on file Sexual Orientation Not on file Last Filed Vital Signs Vital Sign Reading Time Taken Comments Blood Pressure 124/82 01/22/2012 1:00 PM EST Pulse - - Temperature - - Respiratory Rate - - Oxygen Saturation - - Inhaled Oxygen Concentration - - Weight 68 kg (150 lb) 01/22/2012 1:00 PM EST Height 175.3 cm (5' 9 ) 01/22/2012 1:00 PM EST Body Mass Index 22.15 01/22/2012 1:00 PM EST Plan of Treatment Health Maintenance Due Date Last Done Comments Hepatitis C Screening 1955 DTaP/Tdap/Td (1 - Tdap) 1972 Mammogram/Breast Imaging 1994 Pneumococcal 50+ years (1 of 1 - PCV) 2004 Zoster (Shingrix) (1 of 2) 2004 Bone Density 2019 COVID-19 Vaccine ( - 2023-2 5 season) 2024 Influenza (#1) 2024 RSV (1 - 1-dose 75+ series) 2029 HPV Vaccine Aged Out No longer eligi ble based on patient's age to complete this topic Hep A Aged Out No longer eligi ble based on patient's age to complete this topic Hep B Aged Out No longer eligi ble based on patient's age to complete this topic Hib Aged Out No longer eligi ble based on patient's age to complete this topic Meningococcal ACWY Aged Out No longer eligible based on patient's age to complete this topic Pap Smear Discontinued Zoster (Zostavax) Discontinued Care Teams Acid Tender Relationship Specialty Start Date End Date Joe Bryan MD [address] [place] [address] PCP - General 06/25/23
== END 2024-12-19 13:47 | disposition home or self-care (01) ==
LOC: HO.CT 13:46
PROVIDERS: PCP Nurse Practitioner Primary Care; Visit Provider Urology
DX: N20.0 Calculus of kidney (principal)
CPT/HCPCS: 74176

== ENCOUNTER → 2024-12-19 13:51 | Outpatient (BNV) | payer MEDICARE, SELFPAY | PROVIDERS: PCP Nurse Practitioner Primary Care; Visit Provider Specialist | DX: N20.0 Calculus of kidney (principal) | CPT/HCPCS: 74176 ==

== ENCOUNTER 2025-04-23 09:42 | Outpatient (AMB) | payer MEDICARE, SELFPAY ==
--- NOTE | 2025-04-23 09:48 | A.OFFVIS_ITS ---
Intake Visit Reasons: 1y/CT Intake Note: Patient presents today for a 1 year follow-up/CT * Abdomen/Pelvis CT 12/19 Urology Meds- None Allergies to Antibiotic- Cephalexin, ciprofloxacin, clindamycin, levofloxacin, moxifloxacin, nitrofurantoin, Sulfa. Blood Thinner- None Public Health Representative Required: No Accompanied by: Self / Same As Patient Allergies cephalexin [From Keflex] Allergy (Mild, Verified 04/23/25 09:56) Rash ciprofloxacin [From Cipro] Allergy (Mild, Verified 04/23/25 09:56) Rash clindamycin Allergy (Mild, Verified 04/23/25 09:56) C-DIFF codeine Allergy (Mild, Verified 04/23/25 09:56) Rash levofloxacin [From Levaquin] Allergy (Mild, Verified 04/23/25 09:56) Rash morphine Allergy (Mild, Verified 04/23/25 09:56) Rash moxifloxacin [From Avelox] Allergy (Mild, Verified 04/23/25 09:56) Rash nitrofurantoin [From Macrobid] Allergy (Mild, Verified 04/23/25 09:56) Rash phenazopyridine [From Pyridium] Allergy (Mild, Verified 04/23/25 09:56) Rash Sulfa (Sulfonamide Antibiotics) Allergy (Mild, Verified 04/23/25 09:56) RASH Reglan Allergy (Mild, Uncoded 08/22/23 08:09) Unknown Medication List - Last Reconciled 04/23/25 by Evens Reeves MD albuterol sulfate 90 mcg/actuation 2 puffs inhalation Q4-6H PRN Bifidobacterium infantis (Align (B.infantis)) 4 mg PO DAILY dexlansoprazole (Dexilant) 60 mg PO DAILY diclofenac sodium 1% (Voltaren Arthritis Pain) 4 grams topical QID famotidine (Pepcid) 20 mg PO DAILY montelukast 10 mg PO BEDTIME HPI Comments Details: 04/21/24--Leda is a 68-year-old female who presents today to the office for a follow-up for nephrolithiasis. Previous 24 hour urine collection 02/23/2023, low urine volume slightly elevated urine calcium to 24 mg and slightly elevated urine sodium. She had left ESWL performed on 08/21/2023. She is here in follow- up to discuss renal ultrasound results. I discussed renal ultrasound 01/24/2024, a 7 mm left kidney lower pole stone is visualized. Prior to left ESWL, renal ultrasound 08/01/2023 noted a 3 and 4 mm stone in the left kidney. I question accuracy of reported size of stone in the left kidney on renal US 01/24/24. The patient states she is asymptomatic denies renal colic or gross hematuria. Plan discussed follow-up CT stone protocol in 1 year. Patient to call earlier for urinary symptoms. Again recommended increasing fluid intake up to 2 L and low- sodium diet. Review of chart: 09/17/2023? She is followed for history of frequent urinary tract infections, and nephrolithiasis. Patient is a status post left ESWL done on 08/22/2023 for left renal stone in the lower pole. Patient states that post procedure she did see some blood clots in the urine and did not notice any stone fragments. Patient states that she had kidney pain in first couple of days which resolved. She states that over the weekend she did some moving furniture and notes that the kidney pain recurred. I discussed with the patient that the left kidney stone was seen on ultrasound but not seen well KUB imaging so we will monitor with ultrasound imaging on FU. I reviewed the prior 24-hour urine collection test results noted to be urine volume was low at 1.23 L, urine calcium was elevated at 224, and urine sodium was elevated at 158. Discussed again importance of adequate fluid hydration and low sodium diet. The patient states she had a condition neurocardiogenic syncope and needs to consume a certain amount of salt in her diet. X-ray KUB results from 08/22/2023 revealed no evidence of renal calculi. In regards to her symptoms recurrent urinary tract infections, the patient is currently not sexually active which she states is the time when she would get most of her urinary tract infections. She states that nothing ever worked for her including vaginal estrogen, cranberry and D mannose. Evaluation today?UA? Leukocytes: negative; blood: negative. Monitor Kidneys. Ordered Renal US and 24-hour urine collection test in 6 months. [facility] Medical History Neurocardiogenic syncope Heart murmur Hallux valgus Pre-diabetes Hepatic steatosis Nontraumatic tear of right rotator cuff Dense breast Vulvar atrophy Right thyroid nodule Osteoporosis of lumbar spine Allergic rhinitis GERD (gastroesophageal reflux disease) Multinodular goiter (nontoxic) Mild persistent asthma in adult without complication Arthritis of left sacroiliac joint Renal calculus, right Surgical History Hx of bilateral cataract extraction Hx of bilateral cataract extraction History of tonsillectomy History of partial thyroidectomy History of arthroplasty of right shoulder History of endoscopic retrograde cholangiopancreatography History of cholecystectomy Family History Father No problems noted. Mother No problems noted. Social History Alcohol intake: current Alcohol intake frequency: does not drink Patient Tobacco Use Status: Former Tobacco user Results AMB Urinalysis, Automated UA Leukoctes 0 Jonel/uL Last Edit by Isacc Banda, [facility] on 04/23/25 16:41 UA Nitrite Last Edit by Isacc Banda, [facility] on 04/23/25 16:41 UA Urobilinogen 3.5 mg/dL Last Edit by Isacc Banda, [facility] on 04/23/25 16:41 UA Protein 0 mg/dL Last Edit by Isacc Banda, [facility] on 04/23/25 16:41 UA pH 6.0 Last Edit by Isacc Banda, [facility] on 04/23/25 16:41 UA Blood 0 Gary/uL Last Edit by Isacc Banda, [facility] on 04/23/25 16:41 UA Specific [place] 1.015 Last Edit by Isacc Banda, [facility] on 04/23/25 16:41 UA Ketone Last Edit by Isacc Banda, [facility] on 04/23/25 16:41 UA Bilirubin 0 mg/dL Last Edit by Isacc Banda, [facility] on 04/23/25 16:41 UA Glucose 0 mg/dL Last Edit by Isacc Banda, [facility] on 04/23/25 16:41 Assessment & Plan Assessment & Plan Orders: Orders AMB Urinalysis Automated Today N20.0 - Calculus of kidney, Z87.440 - Personal history of urinary (tract) infections Coding
--- OUTSIDE RECORDS SUMMARY | 2025-04-23 10:54 | XMS_ITS | Clinical Summary ---
Author Organization [facility] Address [address] [place] [address] Care Team Providers Care Flame Degreaser Name Role Phone Joe Bryan MD Primary Care Provider [phone] Allergies Active Allergy Reactions Criticality Noted Date [...] ( - 2023-2 5 season) 2024 Influenza (Season Ended) 2025 RSV (1 - 1-dose 75+ series) 2029 [...] Smear Discontinued Zoster (Zostavax) Discontinued Care Teams Flame Degreaser Relationship Specialty Start Date End Date Joe Bryan MD [address] [place] [id number] PCP - General 06/25/23
== END 2025-04-23 10:39 | disposition home or self-care (01) ==
LOC: HO.HUSH 09:42
PROVIDERS: PCP Nurse Practitioner Primary Care; Visit Provider Urology
DX: N20.0 Calculus of kidney (principal); Z87.440 Personal history of urinary (tract) infections

== ENCOUNTER → 2025-04-23 09:42 | Outpatient (BNVA) | payer MEDICARE, SELFPAY | PROVIDERS: PCP Nurse Practitioner Primary Care; Visit Provider Urology | DX: N20.0 Calculus of kidney (principal); N95.2 Postmenopausal atrophic vaginitis; Z87.440 Personal history of urinary (tract) infections | CPT/HCPCS: 81003; 99212 ==